=== PATIENT | female | born 1980 ===

== ENCOUNTER 2018-01-03 07:50 | Day surgery (SDC) | payer OTHER ==
[2017-10-02 05:15] VITALS: BMI 23.8
[2018-01-03] MEDS ORDERED: Lactated Ringer's 500 ML IV ONE (08:08)
[2018-01-03] MEDS ORDERED: Propofol 10 mg/ml Inj (20 ML) ONE (09:14)
[2018-01-03] MEDS ORDERED: Midazolam 2 MG/2 ML VIAL ONE (09:14)
[2018-01-03 09:53] VITALS: TEMP 97.5
[2018-01-03 10:06] VITALS: BP 120/76; PULSE 90; RESP 16; O2SAT 99
== END 2018-01-03 10:45 | disposition home or self-care (01) ==
LOC: H.ENDO 07:50
PROVIDERS: ATTEND Internal Medicine Gastroenterology
DX: R10.13 Epigastric pain (principal); I10 Essential (primary) hypertension; F41.9 Anxiety disorder, unspecified; R12 Heartburn; K29.70 Gastritis, unspecified, without bleeding; K25.9 Gastric ulcer, unspecified as acute or chronic, without hemorrhage or perforation; K21.9 Gastro-esophageal reflux disease without esophagitis
CPT/HCPCS: 43239; 88305; J2001; J2250; J2704; J7120

== ENCOUNTER 2018-02-16 01:51 | Emergency (ER) | payer OTHER ==
[2018-02-16 01:52] VITALS: BMI 23.8
--- NOTE | 2018-02-16 03:54 | ED PDOC ---
HPI: Hypertension/Hypotension Chief Complaint (Provider): hypertension History Per: Patient History/Exam Limitations: no limitations Onset/Duration Of Symptoms: Days (2) Current Symptoms Are (Timing): Still Present Associated Symptoms: Headache Additional Complaint(s): 37 y/o female history of hypertension presents for evaluation of elevated blood pressure x 2 days. Associated headache x 1 day. Patient states last BP at home was 169/105; took Tylenol with little improvement of headache. Denies fever, dizziness, extremity numbness/weakness, chest pain, shortness of breath, palpitations, abdominal pain. Compliant with blood pressure medication <Day Gil - Last Filed: 02/16/18 04:48> <Hari Kim - Last Filed: 02/16/18 06:34> Time Seen by Provider: 02/16/18 03:19 Chief Complaint (Nursing): High Blood Pressure Past Medical History Reviewed: Historical Data, Nursing Documentation, Vital Signs Vital Signs: Last Vital Signs Temp 97.9 F 02/16/18 02:58 Pulse 67 02/16/18 02:58 Resp 16 02/16/18 02:58 BP 167/99 H 02/16/18 02:58 Pulse Ox 100 02/16/18 02:58 - Medical History PMH: Anxiety, Back Problems (cspine), HTN - Surgical History Surgical History: Appendectomy, - Family History Family History: States: Unknown Family Hx - Immunization History Hx Tetanus Toxoid Vaccination: No Hx Influenza Vaccination: No Hx Pneumococcal Vaccination: No <Day Gil - Last Filed: 02/16/18 04:48> Vital Signs: Last Vital Signs Temp 97.9 F 02/16/18 02:58 Pulse 67 02/16/18 02:58 Resp 16 02/16/18 02:58 BP 167/99 H 02/16/18 02:58 Pulse Ox 100 02/16/18 05:04 <Hari Kim - Last Filed: 02/16/18 06:34> - Home Medications Home Medications: Ambulatory Orders Medication Instructions Recorded No Known Home Med 10/02/17 - Allergies Allergies/Adverse Reactions: Allergies Allergy/AdvReac Type Severity Reaction Status Date / Time No Known Allergies Allergy Verified 10/02/17 05:31 Review of Systems ROS Statement: Except As Marked, All Systems Reviewed And Found Negative Neurological: Positive for: Headache <Day Gil - Last Filed: 02/16/18 04:48> Physical Exam - Reviewed Nursing Documentation Reviewed: Yes Vital Signs Reviewed: Yes - Physical Exam Appears: Positive for: Well, Non-toxic, No Acute Distress Head Exam: Positive for: ATRAUMATIC, NORMAL INSPECTION, NORMOCEPHALIC Skin: Positive for: Normal Color Eye Exam: Positive for: Normal appearance, EOMI, PERRL ENT: Positive for: Normal ENT Inspection Cardiovascular/Chest: Positive for: Regular Rate, Rhythm Respiratory: Positive for: Normal Breath Sounds Gastrointestinal/Abdominal: Positive for: Normal Exam Back: Positive for: Normal Inspection Extremity: Positive for: Normal ROM Neurologic/Psych: Positive for: Alert, Oriented (x3). Negative for: Motor/Sensory Deficits <Day Gil - Last Filed: 02/16/18 04:48> - ECG O2 Sat by Pulse Oximetry: 100 - Progress ED Course And Treament: -cbc -cmp -ekg -CT head -PO tylenol <Day Gil - Last Filed: 02/16/18 04:48> - Laboratory Results Result Diagrams: 02/16/18 04:45 02/16/18 04:45 <Hari Kim - Last Filed: 02/16/18 06:34> Medical Decision Making Medical Decision Makin CT head w/o contrast Normal size of the ventricles and extra-axial spaces for the patient's age. Normal white matter tracts of the supratentorial brain. Normal basal ganglia and thalami. Normal brainstem. Normal cerebellum. There is no demonstrated extra-axial, intraparenchymal, or intraventricular hemorrhage. There are no findings of an acute ischemic infarction. Normal calvarium. There is no demonstrated fracture. Normal soft tissue structures. Normal visualized paranasal sinuses. IMPRESSION: Normal unenhanced CT scan of the brain. 630AM BP is now 126/77 and patient is feeling better. Advised to followup with PMD on Tuesday. Very well appearing upon discharge. <Hari Kim - Last Filed: 02/16/18 06:34> Disposition - Patient ED Disposition Is Patient to be Admitted: No - Disposition Disposition Time: 05:00 Patient Signed Over To: Hari Kim Handoff Comments: pending ekg, CT head, re-eval <Day Gil - Last Filed: 02/16/18 04:48> - Disposition Disposition: Routine/Home Disposition Time: 06:30 <Hari Kim - Last Filed: 02/16/18 06:34> - Clinical Impression Clinical Impression: Headache, Hypertension - Disposition Referrals: Marichuy Reinoso MD [Family Provider] - Condition: STABLE Additional Instructions: [facility]iga con [facility]. Instructions: High Blood Pressure in Adults, Headache, Adult (DC) Forms: [facility] ([place]) Print Language: WALLISIAN
[2018-02-16 04:48] LABS: BASO % 0.6 % (0.0-2.0); EOS # 0.1 K/uL (0.0-0.7); EOS % 3.1 % (0.0-4.0); HEMOGLOBIN 11.8 g/dL (12.0-16.0); LYMPH # 1.7 K/uL (1.0-4.3); LYMPH % 35.9 % (20.0-40.0); MEAN CELL VOLUME 89.6 fl (81.0-99.0); MEAN CORPUSCULAR HEMOGLOBIN 29.8 pg (27.0-31.0); MEAN CORPUSCULAR HGB CONC 33.2 g/dL (33.0-37.0); MEAN PLATELET VOLUME 8.4 fl (7.2-11.7); MONO # 0.3 K/uL (0.0-0.8); MONO % 5.8 % (0.0-10.0); NEUT # 2.6 K/uL (1.8-7.0); NEUT % 54.6 % (50.0-75.0); RBC 3.97 Mil/uL (3.80-5.20); WHITE BLOOD COUNT 4.7 K/uL (4.8-10.8)
[2018-02-16 04:56] LABS: ALB/GLOB RATIO 1.3 (1.0-2.1); ALBUMIN 4.3 g/dL (3.5-5.0); ALT/SGPT 19 U/L (9-52); AST/SGOT 17 U/L (14-36); BLOOD UREA NITROGEN 10 mg/dl (7-17); GFR NON-AFRICAN AMERICAN > 60
[2018-02-16 06:29] VITALS: PULSE 68
[2018-02-16 06:44] VITALS: BP 126/77; RESP 18; TEMP 98; O2SAT 99
--- NOTE | 2018-02-16 09:23 | CARD ---
APPROVED REPORT Date of service: 02/16/2018 EKG Measurement Heart [id number] <Conclusion> Normal sinus rhythm Normal ECG
--- NOTE | 2018-02-16 09:59 | CT ---
Date of service: 02/16/2018 PROCEDURE: CT HEAD WITHOUT CONTRAST. HISTORY: headache COMPARISON: None available. TECHNIQUE: Axial computed tomography images were obtained through the head/brain without intravenous contrast. Supplemental Coronal and Sagittal projections created and reviewed. Radiation dose: Total exam DLP = 793.84 mGy-cm. This CT exam was performed using one or more of the following dose reduction techniques: Automated exposure control, adjustment of the mA and/or kV according to patient size, and/or use of iterative reconstruction technique. FINDINGS: HEMORRHAGE: No intracranial hemorrhage. BRAIN: No mass effect or edema. No atrophy or chronic microvascular ischemic changes. VENTRICLES: Unremarkable. No hydrocephalus. CALVARIUM: Unremarkable. PARANASAL SINUSES: Unremarkable as visualized. No significant inflammatory changes. MASTOID AIR CELLS: Unremarkable as visualized. No inflammatory changes. OTHER FINDINGS: None. IMPRESSION: No acute intracranial abnormalities. No significant findings to account for the clinical presentation. Concordant results (preliminary interpretation) provided by [employer]. Procedure Completed: 04:21. Preliminary Report: Dictated and Authenticated: 05:25. Final Interpretation: 09:55.
== END 2018-02-16 06:41 | disposition home or self-care (01) ==
LOC: H.ER 01:51
DX: R51 Headache (principal); I10 Essential (primary) hypertension

== ENCOUNTER 2018-05-01 08:05 | Day surgery (SDC) | payer OTHER ==
[2018-05-01] MEDS ORDERED: Lactated Ringer's 500 ML IV ONE (09:07)
[2018-05-01 09:17] VITALS: RESP 13; O2SAT 100
[2018-05-01] MEDS ORDERED: Propofol 10 mg/ml Inj (20 ML) ONE (10:00)
[2018-05-01 12:33] VITALS: BP 118/75; PULSE 79; TEMP 98.8
== END 2018-05-01 11:00 | disposition home or self-care (01) ==
LOC: H.ENDO 08:05
PROVIDERS: ATTEND Internal Medicine Gastroenterology
DX: Z12.11 Encounter for screening for malignant neoplasm of colon (principal); I10 Essential (primary) hypertension; R00.2 Palpitations; K44.9 Diaphragmatic hernia without obstruction or gangrene; K31.89 Other diseases of stomach and duodenum
CPT/HCPCS: 43239; 88305; J2001; J2704; J7120